=== PATIENT | male | born 1995 | race Caucasian/White ===

== ENCOUNTER 2023-12-22 10:59 | Emergency (ER) | payer OTHER ==
[~2023-12-22] VITALS: Ht 180.3 cm; Wt 90.7 kg
[2023-12-22] MEDS ORDERED: BENZ-13 PO (12:27)
[2023-12-22] MEDS ORDERED: ONDANSETRON 4 MG TAB.RAPDIS ONE (14:13)
[2023-12-22 14:19] VITALS: BP 124/76; TEMP 98.7; O2SAT 97
== END 2023-12-22 14:19 | disposition home or self-care (01) ==
LOC: ER 11:16
DX: U07.1 COVID-19 (principal); R05.9 Cough, unspecified; R07.89 Other chest pain
CPT/HCPCS: 99285; 71045; 87426; 93005; Q0162